=== PATIENT | female | born 1975 | race Caucasian/White ===

== ENCOUNTER 2019-12-20 15:20 | Emergency (ER) | payer BC, MEDICAID ==
[~2019-12-20] VITALS: Ht 165.1 cm; Wt 77.0 kg
[2019-12-20 15:22] VITALS: BP 135/85
[2019-12-20] MEDS ORDERED: HYDROCODONE/ACETAMINOPHEN 5/325MG TABLET PO ONE (15:45)
[2019-12-20] MEDS ORDERED: KETOROLAC 60MG/2ML VIAL IM ONE (15:45)
[2019-12-20] MEDS ORDERED: ONDANSETRON 4MG ODT PO ONE (15:45)
== END 2019-12-20 16:55 | disposition home or self-care (01) ==
LOC: ER 15:20
DX: M25.532 Pain in left wrist (principal); M25.512 Pain in left shoulder; R53.1 Weakness; R20.0 Anesthesia of skin; R03.0 Elevated blood-pressure reading, without diagnosis of hypertension; E78.00 Pure hypercholesterolemia, unspecified; V49.49XA Driver injured in collision with other motor vehicles in traffic accident, initial encounter; Y93.89 Activity, other specified; Y92.488 Other paved roadways as the place of occurrence of the external cause
CPT/HCPCS: 72125; 73030; 73110; 81025; 96372; 99284; J1885; Q0162